=== PATIENT | male | born 1970 | race Caucasian/White ===

== ENCOUNTER 2017-06-03 10:36 | Emergency (ER) | payer OTHER ==
[~2017-06-03] VITALS: Ht 188 cm; Wt 127.0 kg
[~2017-06-03 10:36] MED LIST: ALBU90I INH; ALBU90OI INH; ANTIDEPRESSANT; AZIT250 PO; BENZ100A PO; CEFP200 PO; CEPH500 PO; DOXY100 PO; HYDACE5 PO; MECL12.5 PO; MONDOXYNE NL100 MG PO; Nasonex17 GM; OXYACE5T PO; PERM5TC TOP; PRED20 PO; RISP.25; SERT100 PO; SUCR1 PO; Vibramycin100 MG PO; Vistaril25 MG PO; Zofran Odt4 MG SL
[2017-06-03 13:15] LABS: BASOPHILS ABSOLUTE AUTO 0.04 K/mm3 (0.00-0.23); BASOPHILS PERCENT AUTO 0 % (0-2); EOSINOPHILS PERCENT AUTO 1 % (0-6); Hematocrit 48.2 % (37.0-53.0); Hemoglobin 16.3 g/dL (13.5-17.5); IMMATURE GRAN ABSOLUTE AUTO 0.03 K/mm3 (0.00-0.10); IMMATURE GRAN PERCENT AUTO 0 % (0-1); LYMPHOCYTES ABSOLUTE AUTO 1.26 K/mm3 (0.84-5.20); LYMPHOCYTES PERCENT AUTO 14 % (21-46); MONOCYTES ABSOLUTE AUTO 0.51 K/mm3 (0.16-1.47); MONOCYTES PERCENT AUTO 6 % (4-13); Mean Corpuscular HGB 29.3 pg (26.0-34.0); Mean Corpuscular HGB Conc 33.8 g/dL (31.5-36.5); Mean Corpuscular Volume 87 fL (80-100); Mean Platelet Volume 10.6 fL (9.1-12.4); NEUTROPHILS ABSOLUTE AUTO 6.97 K/mm3 (1.96-9.15); NEUTROPHILS PERCENT AUTO 78 % (41-73); Platelet Count 270 K/mm3 (150-400); RDW Coefficient Variation 12.1 % (11.7-14.2); RDW Standard Deviation 38.5 fL (35.1-46.3); Red Blood Cell Count 5.56 M/mm3 (4.30-5.90); White Blood Cell Count 8.91 K/mm3 (4.00-11.30)
[2017-06-03 13:29] LABS: Alanine Aminotransfer (ALT/SGP 48 U/L (12-78); Albumin, Blood 4.3 g/dL (3.4-5.0); Albumin/Globulin Ratio 0.9 (0.8-1.8); Alk Phos 85 U/L (50-136); Anion Gap 7 mmol/L (6-16); Aspartate Aminotrans (AST/SGOT 33 U/L (12-37); Bilirubin, Total 0.6 mg/dL (0.1-1.0); Blood Urea Nitrogen 17 mg/dL (8-24); Bun/Creatinine Ratio 19.8 (12.0-20.0); CO2, Blood 23 mmol/L (21-32); Calcium, Blood 9.3 mg/dL (8.5-10.1); Chloride, Blood 109 mmol/L (98-108); Creatinine, Blood 0.86 mg/dL (0.60-1.20); Globulin, Blood 4.6 g/dL (2.2-4.0); Glomerular Filtration Rate >60 (60-); Glucose, Blood 86 mg/dL (70-99); Potassium, Blood 3.6 mmol/L (3.5-5.5); Sodium, Blood 139 mmol/L (136-145); Total Protein, Blood 8.9 g/dL (6.4-8.2)
[2017-06-03] MEDS ORDERED: MECL12.5 PO (14:07)
== END 2017-06-03 14:19 | disposition home or self-care (01) ==
LOC: ER 10:36
PROVIDERS: Emergency Medicine
DX: R42 Dizziness and giddiness (principal); R20.8 Other disturbances of skin sensation; F17.200 Nicotine dependence, unspecified, uncomplicated; Z88.0 Allergy status to penicillin; Z88.2 Allergy status to sulfonamides
CPT/HCPCS: 36415; 80053; 85025; 93005; 93010; 99283

== ENCOUNTER 2017-11-03 17:15 | Emergency (ER) | payer OTHER ==
[~2017-11-03] VITALS: Ht 188 cm; Wt 122.5 kg
== END 2017-11-03 18:33 | disposition home or self-care (01) ==
LOC: ER 17:15
DX: K11.6 Mucocele of salivary gland (principal); F17.200 Nicotine dependence, unspecified, uncomplicated; Z88.0 Allergy status to penicillin; Z88.2 Allergy status to sulfonamides
CPT/HCPCS: 99282

== ENCOUNTER 2018-02-13 11:43 | Emergency (ER) | payer OTHER ==
[~2018-02-13] VITALS: Ht 188 cm; Wt 117.9 kg
[2018-02-13 15:28] LABS: BASOPHILS ABSOLUTE AUTO 0.04 K/mm3 (0.00-0.23); BASOPHILS PERCENT AUTO 1 % (0-2); EOSINOPHILS ABSOLUTE AUTO 0.17 K/mm3 (0.00-0.68); EOSINOPHILS PERCENT AUTO 3 % (0-6); Hematocrit 46.4 % (37.0-53.0); Hemoglobin 15.5 g/dL (13.5-17.5); IMMATURE GRAN ABSOLUTE AUTO 0.03 K/mm3 (0.00-0.10); IMMATURE GRAN PERCENT AUTO 1 % (0-1); LYMPHOCYTES ABSOLUTE AUTO 1.16 K/mm3 (0.84-5.20); LYMPHOCYTES PERCENT AUTO 19 % (21-46); MONOCYTES ABSOLUTE AUTO 0.66 K/mm3 (0.16-1.47); MONOCYTES PERCENT AUTO 11 % (4-13); Mean Corpuscular HGB 29.5 pg (26.0-34.0); Mean Corpuscular HGB Conc 33.4 g/dL (31.5-36.5); Mean Corpuscular Volume 88 fL (80-100); Mean Platelet Volume 10.6 fL (9.1-12.4); NEUTROPHILS ABSOLUTE AUTO 3.94 K/mm3 (1.96-9.15); NEUTROPHILS PERCENT AUTO 66 % (41-73); Platelet Count 250 K/mm3 (150-400); RDW Coefficient Variation 12.8 % (11.7-14.2); RDW Standard Deviation 41.6 fL (35.1-46.3); Red Blood Cell Count 5.26 M/mm3 (4.30-5.90)
[2018-02-13 15:56] LABS: Anion Gap 6 mmol/L (6-16); Blood Urea Nitrogen 12 mg/dL (8-24); Bun/Creatinine Ratio 13.4 (12.0-20.0); CO2, Blood 25 mmol/L (21-32); Calcium, Blood 8.4 mg/dL (8.5-10.1); Chloride, Blood 107 mmol/L (98-108); Creatinine, Blood 0.89 mg/dL (0.60-1.20); Glomerular Filtration Rate >60 (60-); Glucose, Blood 76 mg/dL (70-99); Potassium, Blood 3.4 mmol/L (3.5-5.5); Sodium, Blood 138 mmol/L (136-145)
== END 2018-02-13 16:25 | disposition home or self-care (01) ==
LOC: ER 11:43
PROVIDERS: Physician Assistant
DX: Q18.0 Sinus, fistula and cyst of branchial cleft (principal); F17.200 Nicotine dependence, unspecified, uncomplicated
CPT/HCPCS: 36415; 70490; 80048; 85025; 99283-25

== ENCOUNTER 2018-02-28 09:43 | Emergency (ER) | payer OTHER ==
[~2018-02-28] VITALS: Ht 188 cm; Wt 117.9 kg
[2018-02-28 11:08] LABS: Influenza A Negative (NEGATIVE); Influenza B Negative (NEGATIVE)
== END 2018-02-28 11:27 | disposition home or self-care (01) ==
LOC: ER 09:43
PROVIDERS: Physician Assistant
DX: J06.9 Acute upper respiratory infection, unspecified (principal); Z88.0 Allergy status to penicillin; Z88.2 Allergy status to sulfonamides; F17.200 Nicotine dependence, unspecified, uncomplicated
CPT/HCPCS: 87804; 99283

== ENCOUNTER → 2018-06-11 | Outpatient (CLI) | payer OTHER | END | disposition home or self-care (01) | LOC: PLD 07:10 → LAB SHORT 07:10 | DX: R22.1 Localized swelling, mass and lump, neck (principal) | CPT/HCPCS: 88173 ==

== ENCOUNTER 2018-07-17 06:44 | Day surgery (SDC) | payer OTHER ==
[~2018-07-17] VITALS: Ht 188 cm; Wt 118.9 kg
--- NOTE | 2018-07-17 11:43 | NUR ---
07/17/18 1143 Giovanna Yoon UPON ARRIVAL TO SDU PT WAS VERY ANXIOUS AND WAS RETCHING, GIVEN EMESIS BAG BUT PT VOMITED ALL OVER BED AND GOWN. GOWN CHANGED AND PT WAS UNEASY AND RELUCTANT TO GET UP. CALMLY TOLD HIM HE WOULD FEEL BETTER IN THE RECLINER WHICH IS MORE COMFORTABLE. EVNTUALLY I WAS ABLE TO GET HIM TO RECLINER CHAIR. GIVEN NAUSEA MEDS AND TOLERATED WATER AFTER ZOFRAN AND REGLAN. PT REFUSED FOR HIS MOTHER TO COME BACK WITH HIM. HE WAS VERY IRRITATED WITH CARE AND CONTINUOUSLY COVERING HIS GENITAL AREA WITH HIS HANDS. EVENTUALLY SETTLED IN AND THEN CALLED ME IN TO "MAKE THE BEEPING STOP" I HAD TO TURN VS MACHINE OFF BECAUSE THE BEEPING WAS MAKING HIM "ANXIOUS"
== END 2018-07-17 12:50 | disposition home or self-care (01) ==
LOC: ORSCSDS 06:44
PROVIDERS: Otolaryngology
PROC: 07B10ZX Excision of Right Neck Lymphatic, Open Approach, Diagnostic (ICD-10-PCS; principal; 2018-07-17 08:15)
DX: C77.0 Secondary and unspecified malignant neoplasm of lymph nodes of head, face and neck (principal); R22.1 Localized swelling, mass and lump, neck
CPT/HCPCS: 88305; 88342; J0171; J1100; J1885; J2250; J2405; J2704; J2710; J2765; J3010; J7120; Q9968

== ENCOUNTER 2018-10-09 15:04 | Day surgery (SDC) | payer OTHER ==
[2018-10-09] MEDS ORDERED: PROM25 PO (16:53)
[2018-10-09] MEDS ORDERED: Flonase 0.05% N16 GM (16:53)
[2018-10-09] MEDS ORDERED: HYDR1TAB94 PO (16:54)
== END 2018-10-09 17:04 | disposition home or self-care (01) ==
LOC: ATC 15:04
DX: C10.2 Malignant neoplasm of lateral wall of oropharynx (principal); C96.9 Malignant neoplasm of lymphoid, hematopoietic and related tissue, unspecified
CPT/HCPCS: 96360; J7030

== ENCOUNTER 2018-10-10 07:34 | Day surgery (SDC) | payer OTHER ==
[~2018-10-10] VITALS: Ht 188 cm; Wt 110.5 kg
[~2018-10-10 07:34] MED LIST changes: +Flonase 0.05% N16 GM; +HYDR1TAB94 PO; +PROM25 PO
--- NOTE | 2018-10-10 07:51 | NUR ---
History, Chart, Medications and Allergies reviewed before start of procedure.Patient confirms NPO status and agrees with scheduled surgery. Patient States Post-Procedure ride home has been arranged.
--- NOTE | 2018-10-10 09:36 | NUR ---
10/10/18 0936 Koko Mota 3-LEAD EKG REVIEWED WITH PHYSICIAN PRIOR TO START OF PROCEDURE.PATIENT CONFIRMS NPO STATUS AND AGREES WITH SCHEDULED PROCEDURE.History, Chart, Medications and Allergies reviewed before start of procedure. MONITOR INTACT WITH CONTINUOUS PULSE OXIMETRY AND INTERMITTENT BP. O2 VIA N/C INTACT THROUGHOUT SEDATION/PROCEDURE. Bite Block Placed SOFT WRIST RESTRAINTS
--- NOTE | 2018-10-10 11:11 | NUR ---
Patient up to Ambulate independently. Gait steady. Discharge instructions reviewed with patient. Patient verbalizes understanding. Copy given to patient to take home. Patient States Post-Procedure ride home has been arranged. Discharged via wheelchair to private car for ride home.
== END 2018-10-11 00:08 | disposition home or self-care (01) ==
LOC: ORSCMMR 07:34
PROVIDERS: Surgery
PROC: 0DH63UZ Insertion of Feeding Device into Stomach, Percutaneous Approach (ICD-10-PCS; principal; 2018-10-10 09:45)
DX: R13.12 Dysphagia, oropharyngeal phase (principal); R63.4 Abnormal weight loss; C76.0 Malignant neoplasm of head, face and neck; C10.2 Malignant neoplasm of lateral wall of oropharynx; R13.10 Dysphagia, unspecified; E64.0 Sequelae of protein-calorie malnutrition; E86.9 Volume depletion, unspecified; Z71.3 Dietary counseling and surveillance; Z68.33 Body mass index [BMI] 33.0-33.9, adult; Z88.0 Allergy status to penicillin; Z88.2 Allergy status to sulfonamides; Z79.899 Other long term (current) drug therapy
CPT/HCPCS: 96360; C1769; J0690; J2250; J2405; J2704; J7030; J7120

== ENCOUNTER 2018-10-14 16:02 | Day surgery (SDC) | payer OTHER ==
--- NOTE | 2018-10-14 16:52 | NUR ---
PT WITH NAUSEA AND VOMITING OF THICK YELLOW SPUTUM AND RED CHUNKY EMISIS.
== END 2018-10-14 17:43 | disposition home or self-care (01) ==
LOC: ATC 16:02
DX: C10.2 Malignant neoplasm of lateral wall of oropharynx (principal); C96.9 Malignant neoplasm of lymphoid, hematopoietic and related tissue, unspecified
CPT/HCPCS: 96361; 96374; J2405; J7030

== ENCOUNTER 2018-10-16 10:16 | Day surgery (SDC) | payer OTHER ==
[2018-10-16] MEDS ORDERED: NYST237S MT (15:38)
[2018-10-16] MEDS ORDERED: CLOT10 SS (15:38)
[2018-10-16] MEDS ORDERED: PROM25 PO (15:39)
== END 2018-10-16 14:55 | disposition home or self-care (01) ==
LOC: ATC 10:16
DX: C10.2 Malignant neoplasm of lateral wall of oropharynx (principal); E64.0 Sequelae of protein-calorie malnutrition; Z71.3 Dietary counseling and surveillance; Z79.899 Other long term (current) drug therapy; Z88.0 Allergy status to penicillin; Z88.2 Allergy status to sulfonamides
CPT/HCPCS: 96360; J7030

== ENCOUNTER 2018-10-17 02:00 | Day surgery (SDC) | payer OTHER ==
[~2018-10-17 02:00] MED LIST changes: +CLOT10 SS; +NYST237S MT
== END 2018-10-17 11:20 | disposition home or self-care (01) ==
LOC: ATC 02:00
DX: C10.2 Malignant neoplasm of lateral wall of oropharynx (principal); E64.0 Sequelae of protein-calorie malnutrition; Z71.3 Dietary counseling and surveillance; Z79.899 Other long term (current) drug therapy; Z88.0 Allergy status to penicillin; Z88.2 Allergy status to sulfonamides
CPT/HCPCS: 96360; J7030

== ENCOUNTER 2018-10-18 10:56 | Day surgery (SDC) | payer OTHER | END 2018-10-18 12:15 | disposition home or self-care (01) | LOC: ATC 10:56 | DX: C10.2 Malignant neoplasm of lateral wall of oropharynx (principal); C96.9 Malignant neoplasm of lymphoid, hematopoietic and related tissue, unspecified; E64.0 Sequelae of protein-calorie malnutrition; Z71.3 Dietary counseling and surveillance | CPT/HCPCS: 96360; J7030 ==

== ENCOUNTER 2018-10-19 11:08 | Day surgery (SDC) | payer OTHER | END 2018-10-19 12:29 | disposition home or self-care (01) | LOC: ATC 11:08 | DX: C10.2 Malignant neoplasm of lateral wall of oropharynx (principal); E64.0 Sequelae of protein-calorie malnutrition; Z71.3 Dietary counseling and surveillance | CPT/HCPCS: 96360; J7030 ==

== ENCOUNTER 2018-10-20 00:13 | Day surgery (SDC) | payer OTHER | END 2018-10-20 14:53 | disposition home or self-care (01) | LOC: ATC 00:13 | DX: C10.2 Malignant neoplasm of lateral wall of oropharynx (principal); E64.0 Sequelae of protein-calorie malnutrition; Z71.3 Dietary counseling and surveillance; Z79.899 Other long term (current) drug therapy | CPT/HCPCS: 96360; J7030 ==

== ENCOUNTER 2018-10-21 00:11 | Day surgery (SDC) | payer OTHER | END 2018-10-21 22:35 | disposition home or self-care (01) | LOC: ATC 00:11 | DX: C10.2 Malignant neoplasm of lateral wall of oropharynx (principal); E64.0 Sequelae of protein-calorie malnutrition; Z71.3 Dietary counseling and surveillance; Z79.899 Other long term (current) drug therapy; Z88.0 Allergy status to penicillin; Z88.2 Allergy status to sulfonamides | CPT/HCPCS: 96360; J7030 ==

== ENCOUNTER 2018-10-22 00:12 | Day surgery (SDC) | payer OTHER ==
[2018-10-22 16:16] LABS: BASOPHILS ABSOLUTE AUTO 0.03 K/mm3 (0.00-0.23); BASOPHILS PERCENT AUTO 1 % (0-2); EOSINOPHILS ABSOLUTE AUTO 0.17 K/mm3 (0.00-0.68); EOSINOPHILS PERCENT AUTO 3 % (0-6); Hematocrit 44.5 % (37.0-53.0); Hemoglobin 15.3 g/dL (13.5-17.5); IMMATURE GRAN ABSOLUTE AUTO 0.01 K/mm3 (0.00-0.10); IMMATURE GRAN PERCENT AUTO 0 % (0-1); LYMPHOCYTES ABSOLUTE AUTO 0.53 K/mm3 (0.84-5.20); LYMPHOCYTES PERCENT AUTO 11 % (21-46); MONOCYTES PERCENT AUTO 12 % (4-13); Mean Corpuscular HGB 30.2 pg (26.0-34.0); Mean Corpuscular HGB Conc 34.4 g/dL (31.5-36.5); Mean Platelet Volume 10.4 fL (9.1-12.4); NEUTROPHILS ABSOLUTE AUTO 3.69 K/mm3 (1.96-9.15); NEUTROPHILS PERCENT AUTO 73 % (41-73); Platelet Count 246 K/mm3 (150-400); RDW Coefficient Variation 12.6 % (11.7-14.2); RDW Standard Deviation 40.3 fL (35.1-46.3); Red Blood Cell Count 5.06 M/mm3 (4.30-5.90); White Blood Cell Count 5.03 K/mm3 (4.00-11.30)
[2018-10-22 16:19] LABS: Mean Corpuscular Volume 88 fL (80-100)
[2018-10-22 16:32] LABS: Alanine Aminotransfer (ALT/SGP 79 U/L (12-78); Albumin, Blood 3.8 g/dL (3.4-5.0); Albumin/Globulin Ratio 0.9 (0.8-1.8); Alk Phos 104 U/L (50-136); Anion Gap 10 mmol/L (6-16); Aspartate Aminotrans (AST/SGOT 47 U/L (12-37); Bilirubin, Total 0.7 mg/dL (0.1-1.0); Blood Urea Nitrogen 11 mg/dL (8-24); Bun/Creatinine Ratio 12.9 (12.0-20.0); CO2, Blood 22 mmol/L (21-32); Calcium, Blood 8.8 mg/dL (8.5-10.1); Chloride, Blood 108 mmol/L (98-108); Creatinine, Blood 0.86 mg/dL (0.60-1.20); Globulin, Blood 4.2 g/dL (2.2-4.0); Glomerular Filtration Rate >60 (60-); Glucose, Blood 81 mg/dL (70-99); Potassium, Blood 3.4 mmol/L (3.5-5.5); Sodium, Blood 140 mmol/L (136-145)
== END 2018-10-22 14:47 | disposition home or self-care (01) ==
LOC: ATC 00:12
PROVIDERS: Radiology Therapeutic Radiology
DX: C10.2 Malignant neoplasm of lateral wall of oropharynx (principal); C96.9 Malignant neoplasm of lymphoid, hematopoietic and related tissue, unspecified; M54.9 Dorsalgia, unspecified; G89.29 Other chronic pain; E64.0 Sequelae of protein-calorie malnutrition; Z71.3 Dietary counseling and surveillance
CPT/HCPCS: 36415; 80053; 85025; 96360; J7030

== ENCOUNTER 2018-10-23 12:45 | Day surgery (SDC) | payer OTHER | END 2018-10-23 14:42 | disposition home or self-care (01) | LOC: ATC 12:45 | DX: C10.2 Malignant neoplasm of lateral wall of oropharynx (principal); E64.0 Sequelae of protein-calorie malnutrition; Z71.3 Dietary counseling and surveillance; Z79.899 Other long term (current) drug therapy; Z88.0 Allergy status to penicillin; Z88.2 Allergy status to sulfonamides | CPT/HCPCS: 96360; J7030 ==

== ENCOUNTER 2018-10-24 00:33 | Day surgery (SDC) | payer OTHER | END 2018-10-24 14:46 | disposition home or self-care (01) | LOC: ATC 00:33 | DX: C10.2 Malignant neoplasm of lateral wall of oropharynx (principal); C96.9 Malignant neoplasm of lymphoid, hematopoietic and related tissue, unspecified; E64.0 Sequelae of protein-calorie malnutrition; Z88.0 Allergy status to penicillin; Z88.2 Allergy status to sulfonamides; Z71.3 Dietary counseling and surveillance | CPT/HCPCS: 96360; J7030 ==

== ENCOUNTER 2018-10-25 10:56 | Day surgery (SDC) | payer OTHER | END 2018-10-25 12:05 | disposition home or self-care (01) | LOC: ATC 10:56 | DX: C10.2 Malignant neoplasm of lateral wall of oropharynx (principal); Z71.3 Dietary counseling and surveillance; E64.0 Sequelae of protein-calorie malnutrition | CPT/HCPCS: 96360; J7030 ==

== ENCOUNTER 2018-10-26 00:33 | Day surgery (SDC) | payer OTHER | END 2018-10-26 12:24 | disposition home or self-care (01) | LOC: ATC 00:33 | DX: C10.2 Malignant neoplasm of lateral wall of oropharynx (principal); E64.0 Sequelae of protein-calorie malnutrition; Z71.3 Dietary counseling and surveillance | CPT/HCPCS: 96360; J7030 ==

== ENCOUNTER 2018-10-27 09:12 | Day surgery (SDC) | payer OTHER | END 2018-10-27 14:46 | disposition home or self-care (01) | LOC: ATC 09:12 | DX: C10.2 Malignant neoplasm of lateral wall of oropharynx (principal); C96.9 Malignant neoplasm of lymphoid, hematopoietic and related tissue, unspecified | CPT/HCPCS: 96360; J7030 ==

== ENCOUNTER 2018-10-28 00:20 | Day surgery (SDC) | payer OTHER | END 2018-10-28 14:45 | disposition home or self-care (01) | LOC: ATC 00:20 | DX: C10.2 Malignant neoplasm of lateral wall of oropharynx (principal); C96.9 Malignant neoplasm of lymphoid, hematopoietic and related tissue, unspecified | CPT/HCPCS: 96360; J7030 ==

== ENCOUNTER 2018-10-29 00:19 | Day surgery (SDC) | payer OTHER | END 2018-10-29 15:05 | disposition home or self-care (01) | LOC: ATC 00:19 | DX: C10.2 Malignant neoplasm of lateral wall of oropharynx (principal); C96.9 Malignant neoplasm of lymphoid, hematopoietic and related tissue, unspecified; Z88.0 Allergy status to penicillin; Z88.2 Allergy status to sulfonamides | CPT/HCPCS: 96360; J7030 ==

== ENCOUNTER 2018-10-30 00:20 | Day surgery (SDC) | payer OTHER | END 2018-10-30 15:01 | disposition home or self-care (01) | LOC: ATC 00:20 | DX: C10.2 Malignant neoplasm of lateral wall of oropharynx (principal); C96.9 Malignant neoplasm of lymphoid, hematopoietic and related tissue, unspecified | CPT/HCPCS: 96360; J7030 ==

== ENCOUNTER 2018-10-31 13:46 | Day surgery (SDC) | payer OTHER | END 2018-10-31 14:40 | disposition home or self-care (01) | LOC: ATC 13:46 | DX: C10.2 Malignant neoplasm of lateral wall of oropharynx (principal); C96.9 Malignant neoplasm of lymphoid, hematopoietic and related tissue, unspecified; E64.0 Sequelae of protein-calorie malnutrition; Z71.3 Dietary counseling and surveillance | CPT/HCPCS: 96360; 96361; J7030 ==

== ENCOUNTER 2018-11-01 12:56 | Day surgery (SDC) | payer OTHER | END 2018-11-01 14:10 | disposition home or self-care (01) | LOC: ATC 12:56 | DX: C10.2 Malignant neoplasm of lateral wall of oropharynx (principal); Z88.0 Allergy status to penicillin; Z88.2 Allergy status to sulfonamides; Z79.899 Other long term (current) drug therapy | CPT/HCPCS: 96360; J7030 ==

== ENCOUNTER 2018-11-02 00:24 | Day surgery (SDC) | payer OTHER | END 2018-11-02 14:53 | disposition home or self-care (01) | LOC: ATC 00:24 | DX: C10.2 Malignant neoplasm of lateral wall of oropharynx (principal); E64.0 Sequelae of protein-calorie malnutrition; Z88.0 Allergy status to penicillin; Z88.2 Allergy status to sulfonamides | CPT/HCPCS: 96360; J7030 ==

== ENCOUNTER 2018-11-03 00:14 | Day surgery (SDC) | payer OTHER | END 2018-11-03 14:45 | disposition home or self-care (01) | LOC: ATC 00:14 | DX: C10.2 Malignant neoplasm of lateral wall of oropharynx (principal); C96.9 Malignant neoplasm of lymphoid, hematopoietic and related tissue, unspecified; E64.0 Sequelae of protein-calorie malnutrition; Z71.3 Dietary counseling and surveillance | CPT/HCPCS: 96360; J7030 ==

== ENCOUNTER 2018-11-04 00:13 | Day surgery (SDC) | payer OTHER | END 2018-11-04 22:44 | disposition home or self-care (01) | LOC: ATC 00:13 | DX: C10.2 Malignant neoplasm of lateral wall of oropharynx (principal); Z88.0 Allergy status to penicillin; Z88.2 Allergy status to sulfonamides; Z79.899 Other long term (current) drug therapy | CPT/HCPCS: 96360; J7030 ==

== ENCOUNTER 2018-11-05 00:05 | Day surgery (SDC) | payer OTHER | END 2018-11-05 14:53 | disposition home or self-care (01) | LOC: ATC 00:05 | DX: C10.2 Malignant neoplasm of lateral wall of oropharynx (principal); C96.9 Malignant neoplasm of lymphoid, hematopoietic and related tissue, unspecified; E64.0 Sequelae of protein-calorie malnutrition; Z71.3 Dietary counseling and surveillance | CPT/HCPCS: 96360; J7030 ==

== ENCOUNTER 2018-11-06 00:03 | Day surgery (SDC) | payer OTHER | END 2018-11-06 14:55 | disposition home or self-care (01) | LOC: ATC 00:03 | DX: C10.2 Malignant neoplasm of lateral wall of oropharynx (principal); C96.9 Malignant neoplasm of lymphoid, hematopoietic and related tissue, unspecified; E64.0 Sequelae of protein-calorie malnutrition; Z71.3 Dietary counseling and surveillance | CPT/HCPCS: 96360; J7030 ==

== ENCOUNTER 2018-11-07 01:10 | Day surgery (SDC) | payer OTHER | END 2018-11-07 14:45 | disposition home or self-care (01) | LOC: ATC 01:10 | DX: C10.2 Malignant neoplasm of lateral wall of oropharynx (principal); F32.9 Major depressive disorder, single episode, unspecified; Z88.0 Allergy status to penicillin; Z88.2 Allergy status to sulfonamides; Z79.899 Other long term (current) drug therapy | CPT/HCPCS: 96360; J7030 ==

== ENCOUNTER 2018-11-08 13:33 | Day surgery (SDC) | payer OTHER | END 2018-11-08 14:55 | disposition home or self-care (01) | LOC: ATC 13:33 | DX: C10.2 Malignant neoplasm of lateral wall of oropharynx (principal); Z88.0 Allergy status to penicillin; Z88.2 Allergy status to sulfonamides | CPT/HCPCS: 96360; J7030 ==

== ENCOUNTER 2018-11-09 00:32 | Day surgery (SDC) | payer OTHER | END 2018-11-09 14:40 | disposition home or self-care (01) | LOC: ATC 00:32 | DX: C10.2 Malignant neoplasm of lateral wall of oropharynx (principal); F32.9 Major depressive disorder, single episode, unspecified; Z88.0 Allergy status to penicillin; Z88.2 Allergy status to sulfonamides; Z79.899 Other long term (current) drug therapy | CPT/HCPCS: 96360; J7030 ==

== ENCOUNTER 2018-11-10 00:20 | Day surgery (SDC) | payer OTHER | END 2018-11-10 15:05 | disposition home or self-care (01) | LOC: ATC 00:20 | DX: C10.2 Malignant neoplasm of lateral wall of oropharynx (principal); C96.9 Malignant neoplasm of lymphoid, hematopoietic and related tissue, unspecified; F32.9 Major depressive disorder, single episode, unspecified; Z88.0 Allergy status to penicillin | CPT/HCPCS: 96360; J7030 ==

== ENCOUNTER 2018-11-11 00:23 | Day surgery (SDC) | payer OTHER | END 2018-11-11 14:48 | disposition home or self-care (01) | LOC: ATC 00:23 | DX: C10.2 Malignant neoplasm of lateral wall of oropharynx (principal); C96.9 Malignant neoplasm of lymphoid, hematopoietic and related tissue, unspecified; Z88.0 Allergy status to penicillin; Z88.2 Allergy status to sulfonamides | CPT/HCPCS: 96360; J7030 ==

== ENCOUNTER 2018-11-12 00:07 | Day surgery (SDC) | payer OTHER | END 2018-11-12 14:48 | disposition home or self-care (01) | LOC: ATC 00:07 | DX: C10.2 Malignant neoplasm of lateral wall of oropharynx (principal); C96.9 Malignant neoplasm of lymphoid, hematopoietic and related tissue, unspecified; Z88.0 Allergy status to penicillin; Z88.2 Allergy status to sulfonamides | CPT/HCPCS: 96360; J7030 ==

== ENCOUNTER 2018-11-13 00:11 | Day surgery (SDC) | payer OTHER | END 2018-11-13 14:52 | disposition home or self-care (01) | LOC: ATC 00:11 | DX: C10.2 Malignant neoplasm of lateral wall of oropharynx (principal); Z88.0 Allergy status to penicillin; Z88.2 Allergy status to sulfonamides; Z79.899 Other long term (current) drug therapy | CPT/HCPCS: 96360; J7030 ==

== ENCOUNTER 2018-11-14 07:22 | Day surgery (SDC) | payer OTHER | END 2018-11-14 14:58 | disposition home or self-care (01) | LOC: ATC 07:22 | DX: C10.2 Malignant neoplasm of lateral wall of oropharynx (principal); F32.9 Major depressive disorder, single episode, unspecified; Z88.0 Allergy status to penicillin; Z88.2 Allergy status to sulfonamides; Z79.899 Other long term (current) drug therapy | CPT/HCPCS: 96360; J7030 ==

== ENCOUNTER 2018-11-17 12:36 | Day surgery (SDC) | payer OTHER | END 2018-11-17 15:02 | disposition home or self-care (01) | LOC: ATC 12:36 | DX: C10.2 Malignant neoplasm of lateral wall of oropharynx (principal); Z88.0 Allergy status to penicillin; Z88.2 Allergy status to sulfonamides; Z79.899 Other long term (current) drug therapy | CPT/HCPCS: 96360; J7030 ==

== ENCOUNTER 2018-11-19 00:34 | Day surgery (SDC) | payer OTHER | END 2018-11-19 15:29 | disposition home or self-care (01) | LOC: ATC 00:34 | DX: C10.2 Malignant neoplasm of lateral wall of oropharynx (principal); Z88.0 Allergy status to penicillin; Z79.899 Other long term (current) drug therapy; Z88.2 Allergy status to sulfonamides | CPT/HCPCS: 96360; J7030 ==

== ENCOUNTER 2018-11-21 00:38 | Day surgery (SDC) | payer OTHER | END 2018-11-21 15:15 | disposition home or self-care (01) | LOC: ATC 00:38 | DX: C10.2 Malignant neoplasm of lateral wall of oropharynx (principal); F41.0 Panic disorder [episodic paroxysmal anxiety]; F33.2 Major depressive disorder, recurrent severe without psychotic features; G89.29 Other chronic pain; Z79.899 Other long term (current) drug therapy; Z88.0 Allergy status to penicillin; Z88.2 Allergy status to sulfonamides | CPT/HCPCS: 96360; J7030 ==

== ENCOUNTER 2018-11-24 00:11 | Day surgery (SDC) | payer OTHER | END 2018-11-24 15:32 | disposition home or self-care (01) | LOC: ATC 00:11 | DX: C10.2 Malignant neoplasm of lateral wall of oropharynx (principal); C77.0 Secondary and unspecified malignant neoplasm of lymph nodes of head, face and neck; F32.9 Major depressive disorder, single episode, unspecified; Z88.0 Allergy status to penicillin; Z88.2 Allergy status to sulfonamides; Z79.899 Other long term (current) drug therapy | CPT/HCPCS: 96360; J7030 ==

== ENCOUNTER 2018-11-26 00:12 | Day surgery (SDC) | payer OTHER | END 2018-11-26 15:20 | disposition home or self-care (01) | LOC: ATC 00:12 | DX: C10.2 Malignant neoplasm of lateral wall of oropharynx (principal); F41.0 Panic disorder [episodic paroxysmal anxiety]; F33.2 Major depressive disorder, recurrent severe without psychotic features; G89.29 Other chronic pain; Z88.0 Allergy status to penicillin; Z88.2 Allergy status to sulfonamides; Z79.899 Other long term (current) drug therapy | CPT/HCPCS: 96360; J7030 ==

== ENCOUNTER 2018-11-28 01:13 | Day surgery (SDC) | payer OTHER | END 2018-11-28 15:22 | disposition home or self-care (01) | LOC: ATC 01:13 | DX: C10.2 Malignant neoplasm of lateral wall of oropharynx (principal); F41.0 Panic disorder [episodic paroxysmal anxiety]; F33.2 Major depressive disorder, recurrent severe without psychotic features; G89.29 Other chronic pain; Z88.2 Allergy status to sulfonamides; Z88.0 Allergy status to penicillin; Z79.899 Other long term (current) drug therapy | CPT/HCPCS: 96360; J7030 ==

== ENCOUNTER 2021-12-07 11:07 | Emergency (ER) | payer MEDICARE, OTHER ==
[~2021-12-07] VITALS: Ht 188 cm; Wt 99.8 kg
[2021-12-07 12:28] LABS: BASOPHILS ABSOLUTE AUTO 0.02 K/mm3 (0.00-0.23); BASOPHILS PERCENT AUTO 0 % (0-2); EOSINOPHILS ABSOLUTE AUTO 0.03 K/mm3 (0.00-0.68); EOSINOPHILS PERCENT AUTO 0 % (0-6); Hematocrit 44.8 % (37.0-53.0); Hemoglobin 16.1 g/dL (13.5-17.5); IMMATURE GRAN ABSOLUTE AUTO 0.03 K/mm3 (0.00-0.10); IMMATURE GRAN PERCENT AUTO 0 % (0-1); LYMPHOCYTES ABSOLUTE AUTO 0.71 K/mm3 (0.84-5.20); LYMPHOCYTES PERCENT AUTO 10 % (21-46); MONOCYTES PERCENT AUTO 6 % (4-13); Mean Corpuscular HGB 30.4 pg (26.0-34.0); Mean Corpuscular HGB Conc 35.9 g/dL (31.5-36.5); Mean Corpuscular Volume 85 fL (80-100); Mean Platelet Volume 9.8 fL (9.1-12.4); NEUTROPHILS ABSOLUTE AUTO 5.63 K/mm3 (1.96-9.15); NEUTROPHILS PERCENT AUTO 83 % (41-73); Platelet Count 262 K/mm3 (150-400); RDW Coefficient Variation 12.2 % (11.7-14.2); RDW Standard Deviation 37.8 fL (35.1-46.3); White Blood Cell Count 6.82 K/mm3 (4.00-11.30)
[2021-12-07 12:59] LABS: Albumin/Globulin Ratio 0.7 (0.8-1.8); Bilirubin, Total 0.5 mg/dL (0.1-1.0); Bun/Creatinine Ratio 17.4 (12.0-20.0); Calcium, Blood 9.5 mg/dL (8.5-10.1); Creatinine, Blood 0.86 mg/dL (0.60-1.20); Globulin, Blood 5.4 g/dL (2.2-4.0); Potassium, Blood 3.4 mmol/L (3.5-5.5); Total Protein, Blood 9.4 g/dL (6.4-8.2)
[2021-12-07] MEDS ORDERED: CYMBALTA30 M2 PO (13:36)
[2021-12-07] MEDS ORDERED: Robaxin750 MG PO (14:44)
== END 2021-12-07 16:00 | disposition home or self-care (01) ==
LOC: ER 11:07
PROVIDERS: Physician Assistant
DX: M62.838 Other muscle spasm (principal); Z88.2 Allergy status to sulfonamides; Z88.0 Allergy status to penicillin; Z79.899 Other long term (current) drug therapy; Z85.828 Personal history of other malignant neoplasm of skin
CPT/HCPCS: 36415; 70491; 80053; 83690; 85025; A9270; J2405; J2765; J3475; J7030; Q9967

== ENCOUNTER 2021-12-08 17:39 | Inpatient (IN) | payer MEDICARE, OTHER ==
[~2021-12-08] VITALS: Ht 188 cm; Wt 101.9 kg
[~2021-12-08 17:39] MED LIST changes: +CYMBALTA30 M2 PO; +Robaxin750 MG PO
[2021-12-08 22:42] LABS: BASOPHILS ABSOLUTE AUTO 0.04 K/mm3 (0.00-0.23); BASOPHILS PERCENT AUTO 0 % (0-2); EOSINOPHILS PERCENT AUTO 0 % (0-6); Hematocrit 41.4 % (37.0-53.0); Hemoglobin 14.7 g/dL (13.5-17.5); IMMATURE GRAN ABSOLUTE AUTO 0.21 K/mm3 (0.00-0.10); IMMATURE GRAN PERCENT AUTO 1 % (0-1); LYMPHOCYTES ABSOLUTE AUTO 0.57 K/mm3 (0.84-5.20); LYMPHOCYTES PERCENT AUTO 3 % (21-46); MONOCYTES ABSOLUTE AUTO 0.99 K/mm3 (0.16-1.47); MONOCYTES PERCENT AUTO 4 % (4-13); Mean Corpuscular HGB 30.5 pg (26.0-34.0); Mean Corpuscular HGB Conc 35.5 g/dL (31.5-36.5); Mean Corpuscular Volume 86 fL (80-100); Mean Platelet Volume 10.2 fL (9.1-12.4); NEUTROPHILS ABSOLUTE AUTO 21.44 K/mm3 (1.96-9.15); NEUTROPHILS PERCENT AUTO 92 % (41-73); Platelet Count 229 K/mm3 (150-400); RDW Coefficient Variation 12.8 % (11.7-14.2); RDW Standard Deviation 40.1 fL (35.1-46.3); Red Blood Cell Count 4.82 M/mm3 (4.30-5.90); White Blood Cell Count 23.25 K/mm3 (4.00-11.30)
[2021-12-08 23:03] LABS: Albumin, Blood 3.6 g/dL (3.4-5.0); Albumin/Globulin Ratio 0.7 (0.8-1.8); Bun/Creatinine Ratio 13.5 (12.0-20.0); Calcium, Blood 9.5 mg/dL (8.5-10.1); Creatinine, Blood 1.11 mg/dL (0.60-1.20); Globulin, Blood 5.3 g/dL (2.2-4.0); Potassium, Blood 3.8 mmol/L (3.5-5.5); Total Protein, Blood 8.9 g/dL (6.4-8.2)
[2021-12-08 23:36] LABS: Source, Urine Voided
[2021-12-08 23:41] LABS: Appearance, Urine Clear (Clear); Bilirubin, Urine Neg (Neg); Blood, Urine Neg (Neg); Color, Urine Yellow (P-Yellow); Glucose Qualitative, Urine Neg (Neg); Ketones, Urine 1+ (Neg); Leukocyte Esterase, Urine Neg (Neg); Nitrite, Urine Neg (Neg); Protein, Urine 1+ (Neg); Urobilinogen, Urine NORM (Normal)
--- NOTE | 2021-12-09 05:56 | NUR ---
SHIFT SUMMARY PT ER ADMIT THIS SHIFT FOR APPENDICITIS. PT HAS HAD INTERMITTENT PAIN T/O THE SHIFT THAT HAS BEEN MANAGED WITH DILAUDID. PT HAS HAD SOME NAUSEA ALSO, MEDICATED WITH ZOFRAN. IV ANTIBIOTICS INFUSED, FLUIDS INFUSING. PT HAS BEEN NPO, PLAN IS FOR SURGERY TODAY. ADMISSION COMPLETE. VITALS STABLE, BED IN LOWEST POSITON, CALL LIGHT WITHIN REACH.
--- NOTE | 2021-12-09 10:22 | NUR ---
PT TO OR.
--- NOTE | 2021-12-09 11:48 | NUR ---
12/09/21 1148 Ramila Andrews NO PREOP ANTIBIOTICS ORDERED PER PATIENT IS ON SCHEDULED ANTIBIOTICS.
--- NOTE | 2021-12-09 13:18 | NUR ---
PT ARRIVED TO UNIT FROM PACU ARRIVED TO UNIT IN BED. DROWSY BUT ANSWERS QUESTIONS APPROPRIATELY. VSS. LAP INCISIONS TO ABD X3 SECURED W/DERMABOND. CDI. CALL LIGHT IN REACH.
--- NOTE | 2021-12-09 17:01 | NUR ---
SUMMARY PT POD 0 LAP APPY. VSS. MEDICATED PER ORDERS FOR PAIN. PT TOLERATING JELLO AND SIPS OF WATER. DENIES NAUSEA. HAS VOIDED. LAP INCISIONS TO ABD CDI. ADMINISTERED IV FLUIDS AND ABX PER ORDERS. FAMILY HAS BEEN IN AND OUT. CALL LIGHT IN REACH.
--- NOTE | 2021-12-10 06:25 | NUR ---
SHIFT SUMMARY PT A&OX4, PLEASANT AND COOPERATIVE. MEDICATING FOR PAIN PER EMAR. TOLERATING PO INTAKE, NO NAUSEA. SBA, VOIDING USING BEDSIDE URINAL. PT HAS BEEN HAVING SOME BLOOD TINGED SPUTUM, DENIES SOB/CP. ABD LAP SITES C/D/I. CALLS APPROPRIATELY, CALL LIGHT WITHIN REACH.
--- NOTE | 2021-12-10 09:42 | NUR ---
dr zaman in to see pt.
--- NOTE | 2021-12-10 18:00 | NUR ---
SUMMARY NO ACUTE CHANGES T/O SHIFT. PT HAS BEEN PAINFUL BUT TOOK LONG NAP THIS AFTERNOON. MEDICATED THIS EVENING WITH TORADOL FOR 6/10 ABDOMINAL PAIN. TOLERATING SMALL AMOUNTS OF PO. VOIDING AND PASSING FLATUS. IV ABX PER ORDERS. CALL LIGHT IN REACH.
--- NOTE | 2021-12-11 06:16 | NUR ---
POD 2 S/P LAP APPY. PT VSS T/O NIGHT. INCISIONS CDI. PT HAD N/V EARLY IN NIGHT, HAS SINCE DENIED N/V. PT ROZINA PO, REP +FLATUS AND LIQ BM, IS VOIDING URINE W/O DIFFICULTY. PAIN MGD W/TORADOL AND 2 OXYCODONE W/REP RELIEF. PT REP PAIN MUCH IMPROVED THIS AM. PT AMB IN HALLS X1, ROZINA WELL.
[2021-12-11] MEDS ORDERED: OXYC5 PO (11:51)
[2021-12-11] MEDS ORDERED: CEFD300 PO (11:51)
--- NOTE | 2021-12-11 12:56 | NUR ---
DISCHARGE SUMMARY POD2 LAP APPY, A/OX4, VSS, TOLERATING PO, INDEPENDENT IN ROOM, PAIN WELL MANAGED, VOIDING WELL. DISCUSSED DISCHARGE INFORMATION WITH THE PATIENT INCLUDING HOME CARE, MEDICATIONS, FOLLOW UP, AND DISCHARGE QUESTIONS, IV ACCESS REMOVED AND NO OTHER DEVICES IN PLACE. PT AWAITING HIS RIDE TO GO HOME AT THIS TIME.
--- NOTE | 2021-12-11 13:54 | NUR ---
PT ESCORTED OUT VIA WC TO PRIVATE AUTO TO GO HOME
== END 2021-12-11 13:25 | disposition home or self-care (01) | DRG 340 ==
LOC: ER 17:39 → SURS 23:32
PROVIDERS: Emergency Medicine; ADMIT Surgery
PROC: 0DTJ4ZZ Resection of Appendix, Percutaneous Endoscopic Approach (ICD-10-PCS; principal; 2021-12-09 14:30)
DX: K35.32 Acute appendicitis with perforation, localized peritonitis, and gangrene, without abscess (principal); M19.90 Unspecified osteoarthritis, unspecified site; M54.50 Low back pain, unspecified; G89.29 Other chronic pain; Z98.890 Other specified postprocedural states; Z88.0 Allergy status to penicillin; Z88.2 Allergy status to sulfonamides; Z79.899 Other long term (current) drug therapy
CPT/HCPCS: 74177; 80053; 83690; 85025; 88304; 96365; 96365-59; 96367; 96375; 96376; 99285-25; A9270; G0378; J0692; J0694; J1100; J1170; J1650; J1885; J2250; J2405; J2704; J2795; J3010; J7030; J7120; Q9967

== ENCOUNTER → 2024-09-15 | Day surgery (SDC) | payer OTHER ==
[~2024-09-15] MED LIST changes: +CEFD300 PO; +OXYC5 PO
== END | disposition home or self-care (01) ==
LOC: WOUND
DX: Z76.89 Persons encountering health services in other specified circumstances (principal); Z85.818 Personal history of malignant neoplasm of other sites of lip, oral cavity, and pharynx; Z92.3 Personal history of irradiation; Z88.0 Allergy status to penicillin; Z88.2 Allergy status to sulfonamides
CPT/HCPCS: G0463

== ENCOUNTER 2024-10-13 01:14 | Day surgery (SDC) | payer OTHER | END 2024-10-13 23:00 | disposition home or self-care (01) | LOC: HBO 01:14 | DX: M27.2 Inflammatory conditions of jaws (principal); Z92.3 Personal history of irradiation; Z85.818 Personal history of malignant neoplasm of other sites of lip, oral cavity, and pharynx | CPT/HCPCS: G0277 ==

== ENCOUNTER 2024-10-14 02:36 | Day surgery (SDC) | payer OTHER | END 2024-10-14 23:00 | disposition home or self-care (01) | LOC: HBO 02:36 | DX: M27.2 Inflammatory conditions of jaws (principal); Z85.818 Personal history of malignant neoplasm of other sites of lip, oral cavity, and pharynx; Z92.3 Personal history of irradiation | CPT/HCPCS: G0277 ==

== ENCOUNTER 2024-10-15 00:56 | Day surgery (SDC) | payer OTHER | END 2024-10-15 23:00 | disposition home or self-care (01) | LOC: HBO 00:56 | DX: M27.2 Inflammatory conditions of jaws (principal); Z92.3 Personal history of irradiation; Z85.818 Personal history of malignant neoplasm of other sites of lip, oral cavity, and pharynx | CPT/HCPCS: G0277 ==

== ENCOUNTER 2024-10-16 01:54 | Day surgery (SDC) | payer OTHER | END 2024-10-16 23:00 | disposition home or self-care (01) | LOC: HBO 01:54 | DX: M27.2 Inflammatory conditions of jaws (principal) | CPT/HCPCS: G0277 ==

== ENCOUNTER 2024-10-19 01:11 | Day surgery (SDC) | payer OTHER | END 2024-10-19 23:00 | disposition home or self-care (01) | LOC: HBO 01:11 | DX: M27.2 Inflammatory conditions of jaws (principal); Z92.3 Personal history of irradiation; Z85.818 Personal history of malignant neoplasm of other sites of lip, oral cavity, and pharynx | CPT/HCPCS: G0277 ==

== ENCOUNTER 2024-10-20 04:38 | Day surgery (SDC) | payer OTHER | END 2024-10-20 23:51 | disposition home or self-care (01) | LOC: HBO 04:38 | DX: Z92.3 Personal history of irradiation (principal); Z85.818 Personal history of malignant neoplasm of other sites of lip, oral cavity, and pharynx | CPT/HCPCS: G0277 ==

== ENCOUNTER 2024-10-21 03:08 | Day surgery (SDC) | payer OTHER | END 2024-10-21 23:00 | disposition home or self-care (01) | LOC: HBO 03:08 | DX: M27.2 Inflammatory conditions of jaws (principal); Z92.3 Personal history of irradiation; Z85.818 Personal history of malignant neoplasm of other sites of lip, oral cavity, and pharynx | CPT/HCPCS: G0277 ==

== ENCOUNTER 2024-10-26 02:45 | Day surgery (SDC) | payer OTHER | END 2024-10-26 23:00 | disposition home or self-care (01) | LOC: HBO 02:45 | DX: M27.2 Inflammatory conditions of jaws (principal); Z92.3 Personal history of irradiation; Z85.818 Personal history of malignant neoplasm of other sites of lip, oral cavity, and pharynx | CPT/HCPCS: G0277 ==

== ENCOUNTER 2024-10-27 02:30 | Day surgery (SDC) | payer OTHER | END 2024-10-27 23:00 | disposition home or self-care (01) | LOC: HBO 02:30 | DX: M27.2 Inflammatory conditions of jaws (principal); Z92.3 Personal history of irradiation; Z85.818 Personal history of malignant neoplasm of other sites of lip, oral cavity, and pharynx | CPT/HCPCS: G0277 ==

== ENCOUNTER 2024-10-28 02:20 | Day surgery (SDC) | payer OTHER | END 2024-10-28 23:00 | disposition home or self-care (01) | LOC: HBO 02:20 | DX: M27.2 Inflammatory conditions of jaws (principal); Z92.3 Personal history of irradiation; Z85.818 Personal history of malignant neoplasm of other sites of lip, oral cavity, and pharynx | CPT/HCPCS: G0277 ==

== ENCOUNTER 2024-10-29 00:15 | Day surgery (SDC) | payer OTHER | END 2024-10-29 23:00 | disposition home or self-care (01) | LOC: HBO 00:15 | DX: Z85.818 Personal history of malignant neoplasm of other sites of lip, oral cavity, and pharynx (principal); Z92.3 Personal history of irradiation | CPT/HCPCS: G0277 ==

== ENCOUNTER 2024-11-02 00:59 | Day surgery (SDC) | payer OTHER | END 2024-11-02 22:00 | disposition home or self-care (01) | LOC: HBO 00:59 | DX: M27.2 Inflammatory conditions of jaws (principal); Z92.3 Personal history of irradiation; Z85.818 Personal history of malignant neoplasm of other sites of lip, oral cavity, and pharynx | CPT/HCPCS: G0277 ==

== ENCOUNTER 2024-11-03 02:14 | Day surgery (SDC) | payer OTHER | END 2024-11-03 23:00 | disposition home or self-care (01) | LOC: HBO 02:14 | DX: M27.2 Inflammatory conditions of jaws (principal); Z92.3 Personal history of irradiation; Z85.818 Personal history of malignant neoplasm of other sites of lip, oral cavity, and pharynx | CPT/HCPCS: G0277 ==

== ENCOUNTER 2024-11-05 02:20 | Day surgery (SDC) | payer OTHER | END 2024-11-05 23:00 | disposition home or self-care (01) | LOC: WOUND 02:20 | DX: K02.9 Dental caries, unspecified (principal); Z92.3 Personal history of irradiation; Z85.818 Personal history of malignant neoplasm of other sites of lip, oral cavity, and pharynx; M27.2 Inflammatory conditions of jaws | CPT/HCPCS: G0277; G0463 ==

== ENCOUNTER 2024-11-05 02:22 | Day surgery (SDC) | payer OTHER | END 2024-11-05 23:00 | disposition home or self-care (01) | LOC: HBO 02:22 | DX: M27.2 Inflammatory conditions of jaws (principal); Z92.3 Personal history of irradiation; Z85.818 Personal history of malignant neoplasm of other sites of lip, oral cavity, and pharynx | CPT/HCPCS: G0277 ==

== ENCOUNTER 2024-11-06 00:28 | Day surgery (SDC) | payer OTHER | END 2024-11-06 23:00 | disposition home or self-care (01) | LOC: HBO 00:28 | DX: M27.2 Inflammatory conditions of jaws (principal); Z92.3 Personal history of irradiation; Z85.818 Personal history of malignant neoplasm of other sites of lip, oral cavity, and pharynx | CPT/HCPCS: G0277 ==

== ENCOUNTER 2024-11-09 01:34 | Day surgery (SDC) | payer OTHER | END 2024-11-09 23:00 | disposition home or self-care (01) | LOC: HBO 01:34 | DX: Z85.818 Personal history of malignant neoplasm of other sites of lip, oral cavity, and pharynx (principal); Z92.3 Personal history of irradiation | CPT/HCPCS: G0277 ==

== ENCOUNTER 2024-11-10 02:52 | Day surgery (SDC) | payer OTHER | END 2024-11-10 22:00 | disposition home or self-care (01) | LOC: HBO 02:52 | DX: M27.2 Inflammatory conditions of jaws (principal); Z92.3 Personal history of irradiation; Z85.818 Personal history of malignant neoplasm of other sites of lip, oral cavity, and pharynx | CPT/HCPCS: G0277 ==

== ENCOUNTER 2024-11-11 02:19 | Day surgery (SDC) | payer OTHER | END 2024-11-11 23:00 | disposition home or self-care (01) | LOC: HBO 02:19 | DX: M27.2 Inflammatory conditions of jaws (principal); Z92.3 Personal history of irradiation; Z85.818 Personal history of malignant neoplasm of other sites of lip, oral cavity, and pharynx | CPT/HCPCS: G0277 ==